=== PATIENT | female | born 1990 | race African-American/Black ===

== ENCOUNTER 2019-01-18 12:17 | Emergency (ER) | payer SELFPAY ==
[~2019-01-18] VITALS: Ht 182.9 cm; Wt 127.0 kg
[2019-01-18 12:17] VITALS: BP 165/84
--- NOTE | 2019-01-18 12:31 | NUR ---
cough and congestion - BB family to ER
== END 2019-01-18 14:50 | disposition home or self-care (01) ==
LOC: ER 12:23
DX: J20.9 Acute bronchitis, unspecified (principal); F12.90 Cannabis use, unspecified, uncomplicated; E66.9 Obesity, unspecified; Z68.38 Body mass index [BMI] 38.0-38.9, adult; Z60.2 Problems related to living alone
CPT/HCPCS: 71045-TC; 84703-TC